=== PATIENT | female | born 1980 | race Caucasian/White ===

== ENCOUNTER 2017-08-08 06:19 | Day surgery (SDC) | payer MEDICAID, SELFPAY ==
[2017-08-08] VITALS (8 sets, daily range): BP systolic 103–124; BP diastolic 71–82; PULSE 80–92; RESP 16; TEMP 36.2–37; O2SAT 91–97; BMI 36.8
[2017-08-08 06:38] LABS: Hematocrit 41.3 % (37-47); Hemoglobin 13.8 g/dl (12.0-15.0); Mean Corp Hgb Conc 33.4 g/gl (32-36); Mean Corpuscular Hgb 29.2 pg (27.0-32.0); Mean Corpuscular Volume 87.3 fL (81-99); Mean Platelet Vol. 9.6 fl (6.2-12.0); Platelet Count 283 K/mm3 (150-450); RBC Distribution Width CV 13.7 % (11.6-14.6); RBC Distribution Width SD 42.4 fl (35.1-43.9); Red Blood Count 4.73 M/mm3 (4.2-5.4); White Blood Count 7.5 K/mm3 (4.4-11.0)
[2017-08-08 06:41] LABS: Internal QC Validated? YES +Cl - CLEAR BKGD; Pregnancy, Urine Negative Negative
[2017-08-08 06:46] LABS: Scan Indicated on CBC? Y/N NO
--- NOTE | 2017-08-08 07:38 | PCM.HP.STD ---
Problem List (1) Sterilization Status: Acute History of Present Illness Date of Admission: 08/08/17 The patient is a 37 year old F presents for sterilization. 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 Smoking Status: Current every day smoker Alcohol: None Drugs: None Review of Systems Constitutional: Denies: Chills, Fever, Weight Change HEENT: Denies: Head Aches, Sinus Congestion, Sinus Drainage Cardiovascular: Denies: Chest Pain, Palpitations Respiratory: Denies: Cough, Shortness of breath at rest, Sputum production Gastrointestinal: Denies: Abdominal Pain, Nausea, Vomiting Genitourinary: Denies: Dysuria Musculoskeletal: Denies: Joint Pain, Joint Tenderness Skin: Denies: Rash, Wounds Neurological: Denies: Numbness, Tingling, Focal weakness Psychiatric: Denies: Anxiety, Depression, Homicidal Ideations, Suicidal Ideations Hematologic/ Lymphatic: Denies: Easy Bruising, Easy Bleeding VTE Information - Inpt Only VTE Present on Admission: No VTE Mechan Device Prophylaxis: SCD's VTE Pharm Prophylaxis ordered?: No Patient Problems: Active and Suspected Problems Sterilization (Acute) - Physical Exam General: Alert, Oriented x3, Cooperative HEENT: Atraumatic, PERRLA, EOMI, Normocephalic Neck: Supple, No JVD, Negative Carotid Bruits Lungs: Clear to auscultation, Normal air movement Cardiovascular: Regular rate, No murmurs Abdomen: Bowel Sounds Present, Soft, Non Tender Extremities: No edema, Capillary Refill Less than 3 Seconds Skin: No rashes, No breakdown Musculoskeletal: No Tenderness to Palpation of Joints or Extremities Neurological: Cranial nerves II-XII grossly intact Psych/Mental Status: Normal Affect, Appropriate Vital Signs Temp Pulse Resp BP Pulse Ox 98.6 F 80 16 103/73 95 08/08/17 06:32 08/08/17 06:32 08/08/17 06:32 08/08/17 06:32 08/08/17 06:32 Oxygen Delivery Method Room Air Weight: 195 lb 5.273 oz Body Mass Index (BMI) 36.8 Laboratory Tests Past 24 Hrs 08/08/17 08/08/17 08/08/17 06:30 06:30 06:30 WBC 7.5 RBC 4.73 Hgb 13.8 Hct 41.3 MCV 87.3 MCH 29.2 MCHC 33.4 RDW 13.7 RDW Differential 42.4 Plt Count 283 MPV 9.6 Urine Test Negative Blood Type O POSITIVE Antibody Screen NEGATIVE Assessment/Plan Active and Suspected Problems Sterilization (Acute) plan laparoscopic bilateral salpingectomy
--- NOTE | 2017-08-08 08:00 | FALS_PTH ---
PATIENT: JIM SALAS [place] [facility] [place][id number] AGE/SX: 37/F ROOM: RE08/08/[address]: Dr. Mindi Cervantes MD : 1980 BED: DIS: 08/08/2017 SPEC #: [id number] RECD: 08/08/17 11:09 STATUS: WONG [place]LLAND #: [id number] ELIS: 08/08/17 08:[address]: Mindi Cervantes DEPT: SURGICAL PATHOLOGY RECD BY: Alex Miguel ENTERED: 08/08/17 12:11 SP TYPE: FALL TUBES OTHR DR: Dr. Ruth Ramirez MD Tissues: Fallopian tube Procedures: Surgery Specimen Level II HEADER OPERATION: Laparoscopic salpingectomy PRE-OP DIAGNOSIS: Sterilization request TISSUE SUBMITTED: Bilateral fallopian tubes MICROSCOPIC DIAGNOSIS Right and left fallopian tubes, bilateral salpingectomies: Complete segments of fallopian tubes with no pathologic change. AM:anita 08/09/17 MICROSCOPIC DESCRIPTION Slides are reviewed. GROSS DESCRIPTION Received in fixative is one container labeled with the patient's name and designated bilateral fallopian tubes. The specimen consists of bilateral fallopian tubes including fimbrial ends. The fallopian tubes are not identified as right or left. One of the fallopian tubes measure 10 cm in length and 0.5 cm in diameter. The second fallopian tube measures 10 cm in length and 0.5 cm in diameter. Sections reveal unremarkable cut surfaces. Bridge Gang Worker sections are submitted in two cassettes with each cassette containing one fallopian tube. / ROGER:anita 08/08/17 TC:5 CPT: 84821 x2
[2017-08-08] MEDS: Bupivacaine 0.25% 30 ML Vial (08:50)
--- NOTE | 2017-08-08 09:00 | PCM.DC.TUB ---
Discharge Diet: No Restrictions - Increase fluid intake for the next 48 hours. Discharge Activity: Return to Normal Activity, May Drive - when you are no longer taking narcotic pain medications., May Shower, May Take a Tub Bath - in 7 days Additional Activity Instructions:: Ambulate often the next week after surgery. Nothing in the vagina for 5 days. Call your doctor if your incision/area has: Continuous Slow Oozing, Sudden Increased Bleeding, Increased Pain/ Swelling, Increased Redness, Foul Smelling Discharge Call your doctor if you observe: Fever of 101 or Higher Allergies/Adverse Reactions: Allergies metoclopramide HCl [From Reglan] Adverse Reaction (Verified 08/01/17 12:57) Other restlessness Medications to take at Discharge Fluoxetine HCl [Prozac] 20 mg PO DAILY 08/01/17 Naproxen [Naprosyn] 250 - 500 mg PO Q8H PRN PRN #30 tab 08/08/17 Oxycodone HCl/Acetaminophen [Percocet 5-325] 1 - 2 tablet PO Q4H PRN PRN 5 Days #15 tablet 08/08/17 The following prescriptions were given: Oxycodone HCl/Acetaminophen [Percocet 5-325] 1 - 2 tablet PO Q4H PRN PRN 5 Days #15 tablet PRN Reason: Pain Naproxen [Naprosyn] 250 - 500 mg PO Q8H PRN PRN #30 tab PRN Reason: MILD PAIN Primary Care Physician: Ruth Ramirez [Primary Care Provider] - Please Follow Up With: Mindi Cervantes MD - [phone]
--- NOTE | 2017-08-09 08:09 | PCM.OPRPT ---
Problem List (1) Sterilization Status: Acute Report of Operation Date of Procedure: 08/08/17 Pre-Operative Diagnosis: sterilization Post-Operative Diagnosis: same Surgery/Procedure Performed:: laparoscopic bilateral salpignectomy Description of Surgical Findings:: normal tubes ovaries uterus Type of Anesthesia:: General Specimen's removed: tubes Estimated Blood Loss (mL): minimal Fluids Replaced: crystalloid Description of Procedure: Patient was taken in the operating room and was placed under general anesthesia was prepped and draped in normal sterile fashion in the dorsal lithotomy position. Bladder was drained of clear urine and SCDs were on preoperatively. Uterus was sounded and a uterine manipulator was placed after dilating. Attention was then paid to the abdominal portion of the procedure and the umbilicus was elevated with towel clamps and injected with Marcaine and after a 5 mm incision was made and the Veress needle was entered into the abdomen confirmed to be intra-abdominal with a low opening pressure of less than 5 mmHg. Abdomen was insufflated with CO2 gas and a 5 mm optical trocar was placed under direct visualization. A left lower quadrant 5 mm port and a 3 mm alligator retractor was suprapubically placed under direct visualization. Uterus was well visualized and bilateral fallopian tubes identified and bilateral tubes were elevated and transecting across the mesosalpinx and the attachment to the uterine corneal S bilaterally the tubes were removed without complication. Excellent hemostasis was noted. Fallopian tubes were removed through the lower port sites without complication. Liver and upper abdomen were visualized notably within normal limits and no other gross after maladies were seen in the abdomen. All instruments removed from the abdomen after gas was desufflated. Port sites were closed with 3-0 Monocryl Steri's and op sites were applied. All instruments removed from the vagina and patient was awoken and taken recovery in stable condition. Grafts/Implants Used: none - Complications none
== END 2017-08-08 10:28 | disposition home or self-care (01) ==
LOC: SDC 06:20 → AC 06:21
PROVIDERS: Anesthesiology; Family Provider Family Medicine; PCP Family Medicine; Visit Provider Obstetrics & Gynecology
PROC: (CPT 58661; principal; 2017-08-08 07:45)
DX: Z30.2 Encounter for sterilization (principal); F41.9 Anxiety disorder, unspecified; F32.9 Major depressive disorder, single episode, unspecified; F17.200 Nicotine dependence, unspecified, uncomplicated
CPT/HCPCS: 58661; 81025; 85027; 86850; 86900; 88302; J7120; J2405

== ENCOUNTER 2017-09-23 10:52 | Day surgery (SDC) | payer MEDICAID, SELFPAY ==
[2017-09-23] VITALS (8 sets, daily range): BP systolic 99–134; BP diastolic 68–86; PULSE 78–102; RESP 14–16; TEMP 36.4–37.1; O2SAT 92–97; BMI 37.7
[2017-09-23] MEDS: Cefazolin 2 GM in 0.9% Normal Saline 100 ML IV (11:55)
--- NOTE | 2017-09-23 12:05 | DCINST_ITS ---
Discharge Diet: Light diet - advance as tolerated Discharge Activity: Return to Normal Activity, May Drive - when you are no longer taking narcotic pain medications., May Shower - with the bandage in place 1-2 days after surgery. Lifting Restrictions: 20 pounds for 8 weeks. Additional Activity Instructions:: Climbing stairs is fine, walking is encouraged. Sitting in bed may be uncomfortable. Sitting up using your lateral muscles (sitting up sideways) is usually more comfortable. Do not drive, work heavy equipment of sign legal documents for 24 hours. If your hernia repair was an ingunial repair, you may have scrotal swelling, an ice pack and/or athletic support can provide more comfort. Pain medications may cause nausea, you should typically eat light foods as you take your pain medications. Pain medications may also cause constipation. If you have difficulty with this, discuss with your doctor. Call your doctor if your incision/area has: Continuous Slow Oozing, Sudden Increased Bleeding, Increased Pain/ Swelling, Increased Redness, Foul Smelling Discharge Call your doctor if you observe: Fever of 101 or Higher Suture Line Care: Avoid Pulling/Pushing, Avoid Pinching/Bending Additional Dressing/Incision Instructions:: Leave the operative bandage on for 2 -3 days. When you remove the bandage, leave the steri-strips on place until your follow up appointment or they fall off. Allergies/Adverse Reactions: Allergies metoclopramide HCl [From Reglan] Adverse Reaction (Verified 09/20/17 10:17) Other restlessness Medications to take at Discharge Fluoxetine HCl [Prozac] 40 mg PO DAILY 08/01/17 Naproxen [Naprosyn] 250 - 500 mg PO Q8H PRN PRN #30 tab 08/08/17 Oxycodone HCl/Acetaminophen [Percocet 5/325] 1 - 2 tab PO Q4H PRN PRN 4 Days # 30 tab 09/23/17 The following prescriptions were given: Oxycodone HCl/Acetaminophen [Percocet 5/325] 1 - 2 tab PO Q4H PRN PRN 4 Days # 30 tab PRN Reason: Pain Primary Care Physician: Ruth Ramirez [Primary Care Provider] - Please Follow Up With: Darrel Erwin MD - [phone] When: Plan to have a follow up appointment in 7 days. Call to schedule.
--- NOTE | 2017-09-23 12:05 | PCM.OPRPT ---
Problem List (1) Ventral hernia without obstruction or gangrene Status: Acute Report of Operation Date of Procedure: 09/23/17 Pre-Operative Diagnosis: k43.9 ventral hernia without gangrene or obstruction Post-Operative Diagnosis: Same Surgery/Procedure Performed:: Laparoscopic ventral hernia repair with mesh Description of Surgical Findings:: Ventra light ST mesh 4.5 cm x 11.4 cm Type of Anesthesia:: General Anesthesiologist: Hilario Daniels Description of Procedure: Patient was brought to the operating room placed in the supine position. Under excellent general endotracheal intubation the abdomen was sterilely prepped and draped in the usual fashion. Local was injected in the midclavicular lower left abdominal area. Incision was made varies needle was placed inside the abdomen and the abdomen was insufflated to 15 torr. A #5 trocar was placed using a Visiport fashion without injury to underlying structures. A 10/12 trocar was placed suprapubically. Defect was identified above the umbilicus. I took the defect off with the Enseal and came down on the falciform ligament with the Enseal. I had good hemostasis. The defect was relatively small I decided that we would use a 4.5 x 11.4 cm mesh varies needle was placed through the center of the defect the mesh was rolled and placed inside the abdomen we were able to grasp the tubing at work and bring it back through the anterior abdominal wall was cut placed onto the suction syringe and the balloon was dilated the mesh was fashioned in a good place I tacked it in 4 corners with a secure strap. I then removed the balloon in its entirety leaving no parts inside the abdomen. I then circumferentially tacked around the mesh with the secure strap ?2. The mesh laid completely flat and looked quite nice. I had excellent hemostasis. I used a GraNee needle and closed the 1012 lower abdominal trocar with a 0 Vicryl. I remove the trochars under direct visualization good hemostasis was noted. Incisions were then closed with subcuticular stitches of 4-0 Monocryl. Aricept applied. Sterile dressings were applied. Patient tolerated the procedure well. - Admit VTE Documentation VTE Present on Admission: No VTE Mechan Device Prophylaxis: SCD's VTE Pharm Prophylaxis ordered?: No Reason prophylaxis not ordered:: Treatment Not Indicated
[2017-09-23] MEDS: Bupivacaine Mpf 0.5% 30 ML VIAL (12:42)
[2017-09-23] MEDS: oxyCODONE 5 MG Tablet PO (14:42)
[2017-09-23] MEDS: Ketorolac 30 MG/ML Syringe IV (16:36)
== END 2017-09-23 18:01 | disposition home or self-care (01) ==
LOC: SDC 10:53 → AC 10:54
PROVIDERS: Family Provider Family Medicine; PCP Family Medicine; Visit Provider Surgery
PROC: 0WQF4ZZ Repair Abdominal Wall, Percutaneous Endoscopic Approach (ICD-10-PCS; CPT 49652; principal; 2017-09-23 12:40)
DX: K43.9 Ventral hernia without obstruction or gangrene (principal); K21.9 Gastro-esophageal reflux disease without esophagitis; F17.200 Nicotine dependence, unspecified, uncomplicated; L89.301 Pressure ulcer of unspecified buttock, stage 1; F32.9 Major depressive disorder, single episode, unspecified; F41.9 Anxiety disorder, unspecified
CPT/HCPCS: 49652; J7120; C1760; J2405

== ENCOUNTER → 2018-01-10 16:52 | Outpatient (CLI) | payer MEDICAID, SELFPAY ==
[2018-01-10 17:42] LABS: Free T3 2.8 pg/mL (2.18-3.98); T4 Free Direct 0.87 ng/dL (0.76-1.46); Thyroid Stim Hormone (TSH) 1.76 uIU/mL (0.358-3.74)
[2018-01-16 17:05] LABS: Testosterone Free 1.9 pg/mL (0.0-4.2)
== END ==
PROVIDERS: Family Provider Family Medicine; PCP Family Medicine; Visit Provider Obstetrics & Gynecology
DX: R63.5 Abnormal weight gain (principal); N92.6 Irregular menstruation, unspecified
CPT/HCPCS: 36415; 82627; 84402; 84439; 84443; 84481; 82626

== ENCOUNTER 2018-03-17 18:00 | Outpatient (RCR) | payer MEDICAID, SELFPAY | END 2018-03-23 23:59 | LOC: NS 18:00 | PROVIDERS: Family Provider Family Medicine; PCP Family Medicine; Visit Provider Nurse Practitioner Women's Health | DX: E66.9 Obesity, unspecified (principal); Z68.39 Body mass index [BMI] 39.0-39.9, adult; Z71.3 Dietary counseling and surveillance | CPT/HCPCS: 97802; 97803 ==

== ENCOUNTER 2018-04-21 18:00 | Outpatient (RCR) | payer MEDICAID, SELFPAY | END 2018-04-23 23:59 | LOC: NS 18:00 | PROVIDERS: Family Provider Family Medicine; PCP Family Medicine; Visit Provider Nurse Practitioner Women's Health | DX: E66.9 Obesity, unspecified (principal); Z68.39 Body mass index [BMI] 39.0-39.9, adult; Z71.3 Dietary counseling and surveillance | CPT/HCPCS: 97803 ==

== ENCOUNTER 2018-05-26 16:35 | Outpatient (RCR) | payer MEDICAID, SELFPAY | END 2018-06-23 23:59 | LOC: NS 16:35 | PROVIDERS: Family Provider Family Medicine; PCP Family Medicine; Visit Provider Nurse Practitioner Women's Health | DX: E66.9 Obesity, unspecified (principal); Z68.39 Body mass index [BMI] 39.0-39.9, adult; Z71.3 Dietary counseling and surveillance ==

== ENCOUNTER → 2018-06-03 11:20 | Outpatient (CLI) | payer MEDICAID, SELFPAY ==
[2018-06-03 11:07] VITALS: BMI 37.0
[2018-06-03 17:04] LABS: Chlamydia Trachomatis by PCR Negative (Negative); Neisserai gonorrhoeae by PCR Negative (Negative); Probe Check PASS; Sample Adequacy Control PASS; Specimen Processing Control PASS
[2018-06-04 10:01] LABS: HSV 2 IgG < 0.91 index (0.00-0.90)
--- OUTSIDE RECORDS SUMMARY | 2018-07-20 12:24 | XMS RPT_ITS ---
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 Required: No Is patient in pain?: Yes (LRQ) Pain scale (1-10): 1 Allergies metoclopramide HCl [From Reglan] Adverse Reaction (Verified 10/23/17 10:09) Other Medications Fluoxetine HCl [Prozac] 40 mg PO DAILY 08/01/17 [History Confirmed 10/23/17] [facility] Medical History Anxiety and depression (Acute) Surgical History S/P repair of ventral hernia (Acute) Status post tubal ligation (Acute 07/2017) History of tonsillectomy (Acute) History of dilation and curettage (Acute) History of laparoscopy (Acute) Social History Smoking Status: Current every day smoker alcohol intake: current details: social substance use type: does not use caffeine: Yes frequency: 1-2 times per week seatbelt use: always do you feel safe at home: Yes 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 Dr. Erwin performed a laparoscopic ventral hernia repair with mesh on 09/23/2017. Patient tolerated the procedure well. Patient notes pain/discomfort in the right mid abdomen. She notes this discomfort with bowel movements and up an moving around. She denies nausea, vomiting, fever. She notes her appetite has returned to normal. She notes her bowel movements have been fluctuating from constipation to loose stools. She has been taking Miralax to assist with her bowel movements. Patient returns for a follow-up today. She notes the right upper quadrant discomfort has lessen. She has completely stopped her NSAIDs. She notes appetite has returned to normal and bowel habits have been good. Exam Const General: cooperative, healthy appearing, comfortable, no acute distress GI Inspection: normal to inspection, large pannus, obesity, incision (c/d/i. Very nicely healed. ) Palpation: soft Auscultation: normal bowel sounds Assessment AND Plan Problems 1. S/P repair of ventral hernia Z98.890; Z87.19 09/23/2017 Plan - Continue lifting restrictions until 11/23 - May return to work on 11/04/17 - Follow-up as needed Coding Level of Care Code Global Post Op Diagnoses S/P repair of ventral hernia Z98.890; Z87.19 10/23/17 1040 <Electronically signed by Berna Goodrich PA-C> Date Berna Goodrich PA-C Cosigner Signature: Date (if applicable) CC: Annamarie Ramirez SURGERY VISIT REPORT Observed: 10/02/2017 Status: F Source: [place] 10:59 AM [facility] [address] [address] OFFICE VISIT Date of Service: 10/02/17 MR#: [id number] Acct: [id number] Name: JIM SALAS Rep #: [id number] : 1980 Provider: Berna Goodrich PA-C Age/Sex: 37/F Location: [facility] Status: Signed Intake Intake Visit Reasons: F/U UMBILICAL HERNIA SURG DP 09/23/2017 Chief Complaint: f/u ventral hernia repair Attraction Attendant Required: No Is patient in pain?: Yes Pain scale (1-10): 6 Allergies metoclopramide HCl [From Reglan] Adverse Reaction (Verified 10/02/17 09:10) Other Medications Fluoxetine HCl [Prozac] 40 mg PO DAILY 08/01/17 [History Confirmed 10/02/17] ibuprofen 800 mg tablet 800 mg PO TID 7 Days #21 tab 10/02/17 [Rx Confirmed 10/02/17] omeprazole 20 mg capsule,delayed release 20 mg PO QDAY #30 cap 10/02/17 [Rx Confirmed 10/02/17] Is last menstrual period known: No Post menopausal: No Patient : No PFSH Medical History Anxiety and depression (Acute) Surgical History History of dilation and curettage (Acute) History of laparoscopy (Acute) History of tonsillectomy (Acute) S/P repair of ventral hernia (Acute) Status post tubal ligation (Acute 07/2017) Social History Smoking Status: Current every day smoker alcohol intake: current details: social substance use type: does not use caffeine: Yes frequency: 1-2 times per week seatbelt use: always do you feel safe at home: Yes 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 Dr. Erwin performed a laparoscopic ventral hernia repair with mesh on 09/23/2017. Patient tolerated the procedure well. Patient notes pain/discomfort in the right mid abdomen. She notes this discomfort with bowel movements and up an moving around. She denies nausea, vomiting, fever. She notes her appetite has returned to normal. She notes her bowel movements have been fluctuating from constipation to loose stools. She has been taking Miralax to assist with her bowel movements. Exam Const General: cooperative, healthy appearing, comfortable, no acute distress GI Inspection: normal to inspection, obesity, large pannus, incision (c/d/i. No erythema or infection noted. Minimal ecchymosis noted. ) Palpation: soft Auscultation: normal bowel sounds Assessment AND Plan Problems 1. Ventral hernia without obstruction or gangrene K43.9 Plan - Dr. Erwin also evaluated this patient - Recommend no lifting greater than 20 pounds for 6 weeks - Recommend ibuprofen and heating pad for discomfort. Will send prescription. - Continue Miralax every other to every third day. - Recommend 6 weeks off from work - Follow-up in 4 weeks - Recommend PPI while taking NSAIDs. Will send prescription. - Medications New: omeprazole swallow whole; do not crush, chew, dissolve, cut,20 mg PO QDAY break Discontinued: naproxen Discontinued Reason: Pt no longer [id number] - 500 mg PO Q8H PRN PRN MILD PAIN ng Coding Level of Care Code Global Post Op Diagnoses Ventral hernia without obstruction or gangrene K43.9 10/02/17 1059 <Electronically signed by Berna Goodrich PA-C> Date Berna Goodrich PA-C Cosigner Signature: Date (if applicable) CC: OPERATIVE REPORT Observed: 09/27/2017 Status: F Source: [place] 9:40 AM [facility] [place] Medical Records Department [facility] [place] [address] Operative Report 09/23/17 1205 MR#: [id number] Acct: [id number] Name: JIM SALAS Rep #: [id number] : 1980 37 From: Darrel Erwin MD PCP: Annamarie Ramirez Status: DEP [facility] Y Location: [facility] Problem List (1) Ventral hernia without obstruction or gangrene Status: Acute Report of Operation Date of Procedure: 09/23/17 Pre-Operative Diagnosis: k43.9 ventral hernia without gangrene or obstruction Post-Operative Diagnosis: Same Surgery/Procedure Performed:: Laparoscopic ventral hernia repair with mesh Description of Surgical Findings:: Ventra light ST mesh 4.5 cm x 11.4 cm Type of Anesthesia:: General Anesthesiologist: Hilario Daniels Description of Procedure: Patient was brought to the operating room placed in the supine position. Under excellent general endotracheal intubation the abdomen was sterilely prepped and draped in the usual fashion. Local was injected in the midclavicular lower left abdominal area. Incision was made varies needle was placed inside the abdomen and the abdomen was insufflated to 15 torr. A #5 trocar was placed using a Visiport fashion without injury to underlying structures. A 10/12 trocar was placed suprapubically. Defect was identified above the umbilicus. I took the defect off with the Enseal and came down on the falciform ligament with the Enseal. I had good hemostasis. The defect was relatively small I decided that we would use a 4.5 x 11.4 cm mesh varies needle was placed through the center of the defect the mesh was rolled and placed inside the abdomen we were able to grasp the tubing at work and bring it back through the anterior abdominal wall was cut placed onto the suction syringe and the balloon was dilated the mesh was fashioned in a good place I tacked it in 4 corners with a secure strap. I then removed the balloon in its entirety leaving no parts inside the abdomen. I then circumferentially tacked around the mesh with the secure strap 2. The mesh laid completely flat and looked quite nice. I had excellent hemostasis. I used a GraNee needle and closed the 1012 lower abdominal trocar with a 0 Vicryl. I remove the trochars under direct visualization good hemostasis was noted. Incisions were then closed with subcuticular stitches of 4- 0 Monocryl. Aricept applied. Sterile dressings were applied. Patient tolerated the procedure well. - Admit VTE Documentation VTE Present on Admission: No VTE Mechan Device Prophylaxis: SCD's VTE Pharm Prophylaxis ordered?: No Reason prophylaxis not ordered:: Treatment Not Indicated 09/27/17 0940 <Electronically signed by Darrel Erwin MD> Date Darrel Erwin MD CC: Darrel Erwin MD; Annamarie Ramirez Signed DISCHARGE INSTRUCTION Observed: 09/23/2017 Status: F Source: [place] 12:05 PM [facility] [place] Medical Records Department [address] [place] [address] Instructions for Home/Discharge Instructions 09/23/17 1204 MR#: [id number] Acct: [id number] Name: JIM SALAS Rep #: [id number] : 1980 37 From: Darrel Erwin MD PCP: Annamarie Ramirez Status: REG [facility] Discharge Diet: Light diet - advance as tolerated Discharge Activity: Return to Normal Activity, May Drive - when you are no longer taking narcotic pain medications., May Shower - with the bandage in place 1-2 days after surgery. Lifting Restrictions: 20 pounds for 8 weeks. Additional Activity Instructions:: Climbing stairs is fine, walking is encouraged. Sitting in bed may be uncomfortable. Sitting up using your lateral muscles (sitting up sideways) is usually more comfortable. Do not drive, work heavy equipment of sign legal documents for 24 hours. If your hernia repair was an ingunial repair, you may have scrotal swelling, an ice pack and/or athletic support can provide more comfort. Pain medications may cause nausea, you should typically eat light foods as you take your pain medications. Pain medications may also cause constipation. If you have difficulty with this, discuss with your doctor. Call your doctor if your incision/area has: Continuous Slow Oozing, Sudden Increased Bleeding, Increased Pain/ Swelling, Increased Redness, Foul Smelling Discharge Call your doctor if you observe: Fever of 101 or Higher Suture Line Care: Avoid Pulling/Pushing, Avoid Pinching/Bending Additional Dressing/Incision Instructions:: Leave the operative bandage on for 2-3 days. When you remove the bandage, leave the steri-strips on place until your follow up appointment or they fall off. Allergies/Adverse Reactions: Allergies metoclopramide HCl [From Reglan] Adverse Reaction (Verified 09/20/17 10:17) Other restlessness Medications to take at Discharge Fluoxetine HCl [Prozac] 40 mg PO DAILY 08/01/17 Naproxen [Naprosyn] 250 - 500 mg PO Q8H PRN PRN #30 tab 08/08/17 Oxycodone HCl/Acetaminophen [Percocet 5/325] 1 - 2 tab PO Q4H PRN PRN 4 Days #30 tab 09/23/17 The following prescriptions were given: Oxycodone HCl/Acetaminophen [Percocet 5/325] 1 - 2 tab PO Q4H PRN PRN 4 Days #30 tab PRN Reason: Pain Primary Care Physician: Annamarie Ramirez [Primary Care Provider] - Please Follow Up With: Darrel Erwin MD - [phone] When: Plan to have a follow up appointment in 7 days. Call to schedule. 09/23/17 1205 <Electronically signed by Darrel Erwin MD> Date Darrel Erwin MD CC: Annamarie Ramirez SURGERY VISIT REPORT Observed: 09/16/2017 Status: F Source: [place] 1:48 PM [facility] [address] [place] [address] OFFICE VISIT Date of Service: 09/16/17 MR#: [id number] Acct: [id number] Name: JIM SALAS Rep #: [id number] : 1980 Provider: Darrel Erwin MD Age/Sex: 37/F Location: [facility] Status: Signed Intake Intake Visit Reasons: fu/ pilonidal cyst, discuss hernia sx Chief Complaint: Hernia after surgery Attraction Attendant Required: No Is patient in pain?: No Allergies metoclopramide HCl [From Reglan] Adverse Reaction (Verified 09/16/17 13:38) Other Medications Fluoxetine HCl [Prozac] 20 mg PO DAILY 08/01/17 [History Confirmed 09/16/17] Naproxen [Naprosyn] 250 - 500 mg PO Q8H PRN PRN #30 tab 08/08/17 [Rx Confirmed 09/16/17] Oxycodone HCl/Acetaminophen [Percocet 5-325] 1 - 2 tab PO Q4H PRN PRN 5 Days #15 tab 02/15/18 [Rx Confirmed 09/16/17] [facility] Medical History Anxiety and depression (Acute) Surgical History History of dilation and curettage (Acute) History of laparoscopy (Acute) History of tonsillectomy (Acute) Status post tubal ligation (Acute 07/2017) Social History Smoking Status: Current every day smoker alcohol intake: current details: social substance use type: does not use caffeine: Yes frequency: 1-2 times per week seatbelt use: always do you feel safe at home: Yes 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 She has been putting calmoseptine on her buttocks for decubitus sacral ulcer stage I is no longer hurting for her and she does feel much better. Exam Skin Other: Significant improvement in the sacral ulcer today. Virtually no cellulitis is identified the skin is improving. Assessment AND Plan Problems 1. Decubitus ulcer of buttock, stage 1, unspecified laterality L89.301 Plan At this point I would like the patient to continue using the calmoseptine. She is going be getting scheduled for her laparoscopic ventral hernia repair in the upcoming weeks. Coding Level of Care Code Off vis,est,level 2 Diagnoses Decubitus ulcer of buttock, stage 1, unspecified laterality L89.301 Pressure ulcer location: buttock Pressure ulcer stage: stage 1 Laterality: unspecified laterality 09/16/17 1348 <Electronically signed by Darrel Erwin MD> Date Darrel Rubyign Signature: Date (if applicable) CC: SURGERY VISIT REPORT Observed: 09/10/2017 Status: F Source: [place] 11:33 AM [facility] [facility] [address] [facility] [address] [place] [address] OFFICE VISIT Date of Service: 09/06/17 MR#: [id number] Acct: [id number] Name: JIM SALAS Rep #: [id number] : 1980 Provider: Darrel Erwin MD Age/Sex: 37/F Location: [facility] Status: Signed Intake Intake Visit Reasons: poss pilonidal cyst, discuss hernia sx Chief Complaint: Hernia after surgery Attraction Attendant Required: No Is patient in pain?: No Allergies metoclopramide HCl [From Reglan] Adverse Reaction (Verified 09/06/17 08:03) Other Medications Fluoxetine HCl [Prozac] 20 mg PO DAILY 08/01/17 [History Confirmed 09/06/17] Naproxen [Naprosyn] 250 - 500 mg PO Q8H PRN PRN #30 tab 08/08/17 [Rx Confirmed 09/06/17] Oxycodone HCl/Acetaminophen [Percocet 5-325] 1 - 2 tab PO Q4H PRN PRN 5 Days #15 tab 08/08/17 [Rx Confirmed 09/06/17] PFSH Medical History Anxiety and depression (Acute) Surgical History History of dilation and curettage (Acute) History of laparoscopy (Acute) History of tonsillectomy (Acute) Status post tubal ligation (Acute 07/2017) Social History Smoking Status: Current every day smoker alcohol intake: current details: social substance use type: does not use caffeine: Yes frequency: 1-2 times per week seatbelt use: always do you feel safe at home: Yes 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: JIM SALAS, is a 37 F who presents to the office today for Exam Const General: well developed, no acute distress, well hydrated Orientation: oriented to person, oriented to place, oriented to time HENMT Head: normocephalic, atraumatic Ears: external ears normal Mouth: moist mucous membranes Eyes Sclera: sclerae normal Pupils: normal by confrontation Neck Neck: no lymphadenopathy noted Neck mass: No Thyroid: symmetrical, thyroid normal Chest Chest palpation AND inspection: normal inspection of the chest Resp Effort AND Inspection: normal respiratory effort Auscultation: clear to auscultation bilaterally Percussion: percussion normal Cardio Rate: regular rate Rhythm: regular rhythm GI Palpation: soft, tender, no masses, no hepatosplenomegaly Rectal Exam: other Other: A Hernia ventral hernia above her umbilicus on exam. Rectal exam deferred. She has a grade 1 sacral decubitous ulcer. 1.5 x 2cm. small linear tear in the skin. Extrem General: no clubbing, cyanosis or edema, normal to inspection Assessment AND Plan Problems 1. Ventral hernia without obstruction or gangrene K43.9 2. Decubitus ulcer of sacral region, stage 1 L89.151 Plan My plan is to perform a laporoscopic ventral hernia repair. The planned surgical procedure was discussed extensively with the patient. The risks, benefits, anticipated outcomes and possible complication were mentioned. The patient understands that all hernia repair surgery has a chance of recurrence and/or chronic post-operative pain. My staff has also explained the procedure in understandable terms and the patient was given the option to take printed material concerning the planned procedure. The patient had the opportunity to ask questions concerning the planned procedure. The patient freely consents to the planned procedure. We will use Calmoceptine on her sacral decube agrain. Coding Level of Care Code Off vis,est,level 3 Diagnoses Ventral hernia without obstruction or gangrene K43.9 Decubitus ulcer of sacral region, stage 1 L89.151 Pressure ulcer location: sacral region Pressure ulcer stage: stage 1 09/10/17 1133 <Electronically signed by Darrel Erwin MD> Date Darrel Daevy Signature: Date (if applicable) CC: Annamarie SIDDIQIU RAPID STREP A Collected: 09/07/2017 Status: F Source: [facility] SCRN 4:52 AM [facility] TYPE CODE TESTS RESULT OUT OF RANGE REFERENCE UNITS LAB FSSTREP Negative Abnormal FS Positive Rapid Strep A Scrn Result Comment: Rapid test procedural control acceptable. Testing performed at [facility], [address] [place] [address], [place], [place]; [employer] Myron Ross M.D. Performed By: #### FSSTREP #### Unless otherwise noted, all testing performed by [facility] [address] [place], [place] [address] CLIA: [id number] Contact Lens Manufacturer: Antelmo Hussein M.D. SURGERY VISIT REPORT Observed: 08/16/2017 Status: F Source: [place] 8:37 AM [facility] [address] [facility] [address] [place] [address] OFFICE VISIT Date of Service: 08/16/17 MR#: [id number] Acct: [id number] Name: JIM SALAS Rep #: [id number] : 1980 Provider: Darrel Erwin MD Age/Sex: 37/F Location: [facility] Status: Signed Intake Vital Signs08/16/17 Height 5 ft 1 in 08/16/17 Weight: 198 lb Intake Visit Reasons: Hernia Chief Complaint: Hernia after surgery Attraction Attendant Required: No Is patient in pain?: Yes Allergies metoclopramide HCl [From Reglan] Adverse Reaction (Verified 08/16/17 08:09) Other Medications Fluoxetine HCl [Prozac] 20 mg PO DAILY 08/01/17 [History Confirmed 08/16/17] Naproxen [Naprosyn] 250 - 500 mg PO Q8H PRN PRN #30 tab 08/08/17 [Rx Confirmed 08/16/17] Oxycodone HCl/Acetaminophen [Percocet 5-325] 1 - 2 tab PO Q4H PRN PRN 5 Days #15 tab 08/08/17 [Rx Confirmed 08/16/17] PFSH Medical History Anxiety and depression (Acute) Surgical History History of dilation and curettage (Acute) History of laparoscopy (Acute) History of tonsillectomy (Acute) Status post tubal ligation (Acute 07/2017) Social History Smoking Status: Current every day smoker alcohol intake: current details: social substance use type: does not use caffeine: Yes frequency: 1-2 times per week seatbelt use: always do you feel safe at home: Yes 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 A tubal ligation on 08/08/2017 has been developing increasing abdominal discomfort just above her umbilicus since then. She has not been having any changes in her bowel or bladder habits. I have actually seen this patient approximately 5 years ago where she was having a hernia which was much smaller in size and at that time we opted not to operate on it. She has since had another child since I last saw her for that. ROS General General: No weight change, appetite, fatigue, colon cancer, breast cancer or weakness HEENT HEENT: No difficulty swallowing, eye injury, eye surgery, swollen glands or hoarseness Endo Endocrine: No thyroid disease, diabetes mellitus, thyroid cancer, Hair loss, heat intolerance or cold intolerance Skin Skin: No rash or changing moles Breast Breast: No left breast lump, right breast lump, nipple discharge, breast pain, abnormal mammogram, abnormal US or breast enlargement Musc Musculoskeletal: No back problems, arthritis, rheumatoid arthritis, gout or joint pain Cardio Cardiovascular: No murmur, pacemaker, heart disease, atrial fibrillation, high blood pressure, heart attack, heart stent, palpitations, shortness of breat with exertion or chest pain Psych Psychiatric: Yes depression and anxiety; no hearing voices Resp Respiratory: No shortness of breath, No sleep apnea, No cough, No COPD, No asthma, No emphysema, No wheezing Gastro Gastrointestinal: Yes abdominal pain, No nausea or vomiting, No diarrhea, No constipation, No blood in stool, No acid reflux, No hemorrhoids, No ulcers, No gallbladder problem, No black,tarry stools Chapo Hematologic: No blood thinners, No blood disorders, No bleeding, No anemia, No blood clots Neuro Neurologic: No system reviewed and no additional complaints, except as docu, No as per HPI, No abnormal walking, No abnormal hearing, No abnormal movements, No abnormal speech, No behavioral changes, No burning sensations, No confusion, No seizure-like activity, No unsteadiness, No dizziness, No localized weakness, No frequent falls, No headache(s), No lack of coordination, No loss of vision, No memory loss, No numbness, No other visual disturbances, No radiating pain, No restless legs, No sensory deficit, No fainting, No tingling, No tremor(s), No weakness, No other Exam Const General: well developed, no acute distress, well hydrated Orientation: oriented to person, oriented to place, oriented to time [facility] Head: normocephalic, atraumatic Ears: external ears normal Mouth: moist mucous membranes Eyes Sclera: sclerae normal Pupils: normal by confrontation Neck Neck: no lymphadenopathy noted Neck mass: No Thyroid: symmetrical, thyroid normal Chest Chest palpation AND inspection: normal inspection of the chest Breast Palpation: No nipple discharge Resp Effort AND Inspection: normal respiratory effort Auscultation: clear to auscultation bilaterally Percussion: percussion normal Cardio Rate: regular rate Rhythm: regular rhythm Heart Sounds: no murmurs GI Palpation: soft, tender, no masses, no hepatosplenomegaly Rectal Exam: other Other: A Hernia large 3 cm hernia is felt just above the umbilicus. She has a very thin fascial edge here. On exam. Rectal exam deferred. Extrem General: no clubbing, cyanosis or edema, normal to inspection Assessment AND Plan Problems 1. Ventral hernia without obstruction or gangrene K43.9 Plan My plan is to perform a ventral hernia repair with mesh. The planned surgical procedure was discussed extensively with the patient. The risks, benefits, anticipated outcomes and possible complication were mentioned. The patient understands that all hernia repair surgery has a chance of recurrence and/or chronic post-operative pain. My staff has also explained the procedure in understandable terms and the patient was given the option to take printed material concerning the planned procedure. The patient had the opportunity to ask questions concerning the planned procedure. The patient freely consents to the planned procedure. Coding Level of Care Code Off vis,new,level 3 Diagnoses Ventral hernia without obstruction or gangrene K43.9 08/16/17 0837 <Electronically signed by Darrel Erwin MD> Date Darrel Davey Signature: Date (if applicable) CC: Annamarie Ramirez; Mindi Cervantes MD [facility] OFFICE VISIT Observed: 08/13/2017 Status: F Source: RA[place]DO REPORT 3:15 PM [facility] [place] [address] [place] [address]. [address] [place] [address] OFFICE VISIT Date of Service: 08/13/17 MR#: [id number] Acct: [id number] Name: JIM SALAS Rep #: [id number] : 1980 Provider: STORM Marion Age/Sex: 37/F Location: [facility] Status: Signed Intake Vital Signs08/13/17 Height 5 ft 1 in 08/13/17 Weight: 197 lb 08/13/17 Body Mass Index (BMI) 37.2 08/13/17 Blood Pressure 100/68 Intake Visit Reasons: HERNIA? Chief Complaint: Hernia after surgery Attraction Attendant Required: No Is patient in pain?: Yes Allergies metoclopramide HCl [From Reglan] Adverse Reaction (Verified 08/13/17 15:00) Other Medications Fluoxetine HCl [Prozac] 20 mg PO DAILY 08/01/17 [History Confirmed 08/13/17] Naproxen [Naprosyn] 250 - 500 mg PO Q8H PRN PRN #30 tab 08/08/17 [Rx Confirmed 08/13/17] Oxycodone HCl/Acetaminophen [Percocet 5-325] 1 - 2 tab PO Q4H PRN PRN 5 Days #15 tab 08/08/17 [Rx Confirmed 08/13/17] Is last menstrual period known: No Post menopausal: No Patient : No : No PFSH Medical History Anxiety and depression (Acute) Surgical History History of dilation and curettage (Acute) History of laparoscopy (Acute) History of tonsillectomy (Acute) Social History Smoking Status: Current every day smoker alcohol intake: current details: social substance use type: does not use caffeine: Yes frequency: 1-2 times per week seatbelt use: always do you feel safe at home: Yes 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 Noted yesterday. Was aware previously of unbilical hernia. Had tubal ligation 08/08. Has had BM, passing flatulence. Pregancy History 7 Elective abortions Hx Para 5 Spontaneous abortions Past Pregnancies Del. 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 FOB t n h a n Exam GI Other: Soft, mildly tender, reduceable 3cm mass above umbilicus. Probable persistent hernia. Reevaluated per Dr. Cervantes. Assessment AND Plan Problems 1. Umbilical hernia without obstruction and without gangrene K42.9 Plan Avoid heavy lifting. Call with worsening pain, unable to have BM. Arrange for surgical consult Dr. Erwin. Note off work until 08/19 as she worked 12 hour shift yesterday. Coding Level of Care Code Off vis,est,level 3 Diagnoses Umbilical hernia without obstruction and without gangrene K42.9 Obstruction and gangrene presence: without obstruction or gangrene 08/13/17 3085 <Electronically signed by Kaila ZAMORANO> Date Kaila ZAMORANO Cosigner Signature: Date (if applicable) CC: OPERATIVE REPORT Observed: 08/09/2017 Status: F Source: AROLDO 1:22 PM [facility] [facility] Medical Records Department [address] [place] [address] Operative Report 08/09/17 0809 MR#: [id number] Acct: [id number] Name: JIM SALAS Rep #: [id number] : 1980 37 From: Mindi Cervantes MD PCP: Annamarie Ramirez Status: DEP [facility] Y Location: [facility] Problem List (1) Sterilization Status: Acute Report of Operation Date of Procedure: 08/08/17 Pre-Operative Diagnosis: sterilization Post-Operative Diagnosis: same Surgery/Procedure Performed:: laparoscopic bilateral salpignectomy Description of Surgical Findings:: normal tubes ovaries uterus Type of Anesthesia:: General Specimen's removed: tubes Estimated Blood Loss (mL): minimal Fluids Replaced: crystalloid Description of Procedure: Patient was taken in the operating room and was placed under general anesthesia was prepped and draped in normal sterile fashion in the dorsal lithotomy position. Bladder was drained of clear urine and SCDs were on preoperatively. Uterus was sounded and a uterine manipulator was placed after dilating. Attention was then paid to the abdominal portion of the procedure and the umbilicus was elevated with towel clamps and injected with Marcaine and after a 5 mm incision was made and the Veress needle was entered into the abdomen confirmed to be intra-abdominal with a low opening pressure of less than 5 mmHg. Abdomen was insufflated with CO2 gas and a 5 mm optical trocar was placed under direct visualization. A left lower quadrant 5 mm port and a 3 mm alligator retractor was suprapubically placed under direct visualization. Uterus was well visualized and bilateral fallopian tubes identified and bilateral tubes were elevated and transecting across the mesosalpinx and the attachment to the uterine corneal S bilaterally the tubes were removed without complication. Excellent hemostasis was noted. Fallopian tubes were removed through the lower port sites without complication. Liver and upper abdomen were visualized notably within normal limits and no other gross after maladies were seen in the abdomen. All instruments removed from the abdomen after gas was desufflated. Port sites were closed with 3-0 Monocryl Steri's and op sites were applied. All instruments removed from the vagina and patient was awoken and taken recovery in stable condition. Grafts/Implants Used: none - Complications none 08/09/17 1322 <Electronically signed by Mindi Cervantes MD> Date Mindi Cervantes MD CC: Annamarie Ramirez; Mindi Cervantes MD Signed DISCHARGE INSTRUCTION Observed: 08/08/2017 Status: F Source: AROLDO 9:00 AM [facility] Medical Records Department [address] [place] [address] Instructions for Home/Discharge Instructions 08/08/17 0900 MR#: [id number] Acct: [id number] Name: JIM SALAS Rep #: [id number] : 1980 37 From: Mindi Cervantes MD PCP: Annamarie Ramirez Status: REG [facility] Discharge Diet: No Restrictions - Increase fluid intake for the next 48 hours. Discharge Activity: Return to Normal Activity, May Drive - when you are no longer taking narcotic pain medications., May Shower, May Take a Tub Bath - in 7 days Additional Activity Instructions:: Ambulate often the next week after surgery. Nothing in the vagina for 5 days. Call your doctor if your incision/area has: Continuous Slow Oozing, Sudden Increased Bleeding, Increased Pain/ Swelling, Increased Redness, Foul Smelling Discharge Call your doctor if you observe: Fever of 101 or Higher Allergies/Adverse Reactions: Allergies metoclopramide HCl [From Reglan] Adverse Reaction (Verified 08/01/17 12:57) Other restlessness Medications to take at Discharge Fluoxetine HCl [Prozac] 20 mg PO DAILY 08/01/17 Naproxen [Naprosyn] 250 - 500 mg PO Q8H PRN PRN #30 tab 08/08/17 Oxycodone HCl/Acetaminophen [Percocet 5-325] 1 - 2 tablet PO Q4H PRN PRN 5 Days #15 tablet 08/08/17 The following prescriptions were given: Oxycodone HCl/Acetaminophen [Percocet 5-325] 1 - 2 tablet PO Q4H PRN PRN 5 Days #15 tablet PRN Reason: Pain Naproxen [Naprosyn] 250 - 500 mg PO Q8H PRN PRN #30 tab PRN Reason: MILD PAIN Primary Care Physician: Annamarie Ramirez [Primary Care Provider] - Please Follow Up With: Mindi Cervantes MD - [phone] 08/08/17 0900 <Electronically signed by Mindi Cervantes MD> Date Mindi Cervantes MD CC: Annamarie Ramirez FALLOPIAN TUBES/STERILIZATION Observed: 08/08/2017 Status: F Source: AROLDO 8:00 AM [facility] [place] Patient: JIM SALAS : 1980 (37/F) Acct Num: [id number] Phys: Billy EDWARD,Mindi Unit Num: [id number] Loc: [facility] Specimen: [id number] Received: 08/08/171108 Spec Type: FALL TUBES TISSUES TISSUES: Fallopian tube GROSS DESCRIPTION Received in fixative is one container labeled with the patient's name and designated bilateral fallopian tubes. The specimen consists of bilateral fallopian tubes including fimbrial ends. The fallopian tubes are not identified as right or left. One of the fallopian tubes measure 10 cm in length and 0.5 cm in diameter. The second fallopian tube measures 10 cm in length and 0.5 cm in diameter. Sections reveal unremarkable cut surfaces. Clinical Trial Coordinator sections are submitted in two cassettes with each cassette containing one fallopian tube. / SJ:anita 08/08/17 TC:5 CPT: 80379 x2 HEADER OPERATION: Laparoscopic salpingectomy PRE-OP DIAGNOSIS: Sterilization request TISSUE SUBMITTED: Bilateral fallopian tubes MICROSCOPIC DESCRIPTION Slides are reviewed. MICROSCOPIC DIAGNOSIS Right and left fallopian tubes, bilateral salpingectomies: Complete segments of fallopian tubes with no pathologic change. AM:anita 08/09/17 Signed Arvind [facility] 08/09/17 <signature on file> Performed By: #### PFALS #### [facility] [address] [place], [address] HISTORY AND PHYSICAL Observed: 08/08/2017 Status: F Source: GLENNS FERRY EXAM 7:59 AM [facility] [facility] Medical Records Department [address] [place] [address] History and Physical 08/08/17 0738 MR#: [id number] Acct: [id number] Name: JIM SALAS Rep #: [id number] : 1980 37 From: Mindi Cervantes MD PCP: Annamarie Ramirez Status: REG [facility] Y Location: [place] [address] Problem List (1) Sterilization Status: Acute History of Present Illness Date of Admission: 08/08/17 The patient is a 37 year old F presents for sterilization. 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 Smoking Status: Current every day smoker Alcohol: None Drugs: None Review of Systems Constitutional: Denies: Chills, Fever, Weight Change HEENT: Denies: Head Aches, Sinus Congestion, Sinus Drainage Cardiovascular: Denies: Chest Pain, Palpitations Respiratory: Denies: Cough, Shortness of breath at rest, Sputum production Gastrointestinal: Denies: Abdominal Pain, Nausea, Vomiting Genitourinary: Denies: Dysuria Musculoskeletal: Denies: Joint Pain, Joint Tenderness Skin: Denies: Rash, Wounds Neurological: Denies: Numbness, Tingling, Focal weakness Psychiatric: Denies: Anxiety, Depression, Homicidal Ideations, Suicidal Ideations Hematologic/ Lymphatic: Denies: Easy Bruising, Easy Bleeding VTE Information - Inpt Only VTE Present on Admission: No VTE Mechan Device Prophylaxis: SCD's VTE Pharm Prophylaxis ordered?: No Patient Problems: Active and Suspected Problems Sterilization (Acute) - Physical Exam General: Alert, Oriented x3, Cooperative HEENT: Atraumatic, PERRLA, EOMI, Normocephalic Neck: Supple, No JVD, Negative Carotid Bruits Lungs: Clear to auscultation, Normal air movement Cardiovascular: Regular rate, No murmurs Abdomen: Bowel Sounds Present, Soft, Non Tender Extremities: No edema, Capillary Refill Less than 3 Seconds Skin: No rashes, No breakdown Musculoskeletal: No Tenderness to Palpation of Joints or Extremities Neurological: Cranial nerves II-XII grossly intact Psych/Mental Status: Normal Affect, Appropriate Vital Signs Temp Pulse Resp BP Pulse Ox 98.6 F 80 16 103/73 95 08/08/17 06:32 08/08/17 06:32 08/08/17 06:32 08/08/17 06:32 08/08/17 06:32 Oxygen Delivery Method Room Air Weight: 195 lb 5.273 oz Body Mass Index (BMI) 36.8 Laboratory Tests Past 24 Hrs WBC 7.5 RBC 4.73 Hgb 13.8 Hct 41.3 MCV 87.3 Assessment/Plan Active and Suspected Problems Sterilization (Acute) plan laparoscopic bilateral salpingectomy 08/08/17 0759 <Electronically signed by Mindi Cervantes MD> Date Mindi Cervantes MD Cosign Signature: Date (if applicable) CC: Annamarie Ramirez; Mindi Cervantes MD Signed ,URINE Collected: 08/08/2017 Status: F Source: GLENNS FERRY 6:30 AM [facility] [place] TYPE CODE TESTS RESULT OUT OF REFERENCE UNITS RANGE LAB L400.8000 Negative Normal HCGUQUAL Negative Result Comment: Very dilute urine specimens, as indicated by a low specific gravity, may not contain premium service representative levels of hCG. If is still suspected, a first morning urine specimen should be collected 48 hours later and tested. Performed By: #### L400.7600, B101.7450 #### [facility] [address] [place], [address] TYPE AND SCREEN Collected: 08/08/2017 Status: F Source: GLENNS FERRY 6:30 AM [facility] [place] Order Comment: Reason for Type AND Screen/Red Cells: SURGERY TYPE CODE TESTS RESULT OUT OF RANGE REFERENCE UNITS LAB B10.0800 O Normal BLOOD TYPE GEL POSITIVE LAB B100.4000 Normal Antibody NEGATIVE Screen Performed By: #### L400.7600, B101.7450 #### [facility] [address] [place], [address] CBC-COMPLETE BLOOD CNT Collected: 08/08/2017 Status: F Source: AROLDO NO DIFF 6:30 AM [facility] TYPE CODE TESTS RESULT OUT OF RANGE REFERENCE UNITS LAB L100.1000 4.4-11.0 K/mm3 Normal WBC 7.5 LAB L100.1200 4.2-5.4 M/mm3 Normal RBC 4.73 LAB L100.1300 12.0-15.0 g/dl Normal HGB 13.8 LAB L100.1400 37-47 % Normal HCT 41.3 LAB L100.1500 81-99 fL Normal MCV 87.3 LAB L100.1600 27.0-32.0 pg Normal MCH 29.2 LAB L100.1700 32-36 g/gl Normal MCHC 33.4 LAB L100.1810 11.6-14.6 % Normal RDW CV 13.7 LAB L100.1820 35.1-43.9 fl Normal RDW SD 42.4 LAB L100.1900 150-450 K/mm3 Normal PLT 283 LAB L100.2000 6.2-12.0 fl Normal MPV 9.6 Performed By: #### L100.0500 #### [facility] [address] [place], [address] ALLERGIES ALLERGIES DATE TYPE / NAME / CODE REACTION SEVERITY SOURCE CODE 06/03/2018 Drug metoclopramide Other Unknown [place] Allergy/41 HCl/[id number](RXNOR [facility] [id number]([facility]) Repository ENCOUNTERS ENCOUNTERS ADMIT/DISCHARGE ACCOUNT NUMBER ADMITTING ENCOUNTER LOCATION SOURCE CLASS 07/04/2018 [id number] Ambulatory [facility] ding:NS Repository 06/18/2018/06/18/20 [id number] Emergency [address] [place] [address] DRoom: System ([place]) E832Tym: Repository E016 06/04/2018 [id number] Ambulatory BMSBuilding: [place] [facility] Repository 06/03/2018 [id number] Ambulatory [facility] ding:PAVLAB Repository 06/03/2018/06/03/20 [id number] Ambulatory BMSBuilding: [place] 18 BMS.[facility] Hospital Repository 05/26/2018/06/23/20 [id number] Ambulatory [place] 18 [facility] ding:NS Repository 05/21/2018 [id number] Ambulatory [facility]in[facility] [employer] B System ([place]) Repository 05/21/2018 [id number] Ambulatory [facility]in[facility] [employer] [facility] [place] ([place]) Repository 04/21/2018/04/23/20 [id number] Ambulatory [place] 18 [facility] ding:NS Repository 03/17/2018/03/23/20 [id number] Ambulatory [place] [address] [place] [address] ding:NS Repository 01/10/2018 [id number] Ambulatory [facility] ding:LAB Repository 01/10/2018/01/11/20 [id number] Ambulatory BMSBuilding: [place] 18 [facility] Hospital Repository 12/13/2017 [id number] Ambulatory [facility] [employer] 2 System ([place]) Repository 12/13/2017 [id number] Ambulatory Buildin[facility] [employer] P [place] ([place]) Repository 12/08/2017/12/09/19 [id number] [address] [place] [address] DRoom: System ([place]) P601Zmc: Repository E012 10/23/2017/10/24/19 [id number] Ambulatory BMSBuilding: [place] 18 BMS.[facility] Repository 10/02/2017/10/03/19 [id number] Ambulatory BMSBuilding: [place] 18 BMS.[facility] Repository 09/23/2017/09/24/19 [id number] Ambulatory [place] 18 [facility] ding:SDC Repository 09/23/2017 [id number] Ambulatory BMSBuilding: [place] BMS.CF.[facility] Repository 09/17/2017 [id number] Ambulatory Buildin[facility] [employer] A System ([place]) Repository 09/16/2017/09/17/19 [id number] Ambulatory BMSBuilding: [place] 18 BMS.[facility] Repository 09/13/2017 [id number] Ambulatory BMSBuilding: [place] BMS.[facility] Repository 09/07/2017/09/08/[id number] [facility] Emergency [place] [address] [place] lding:O1E [place] and Onel [place] DeptRoom: Hospitals O1E C7DOBqa: Repository O1E O1ED02 09/06/2017/09/07/19 [id number] Ambulatory BMSBuilding: [place] 18 BMS.[facility] Repository 08/16/2017/08/16/19 [id number] Ambulatory BMSBuilding: [place] 18 BMS.[facility] Repository 08/13/2017/08/13/19 [id number] Ambulatory BMSBuilding: [place] 18 BMS.[facility] Repository 08/08/2017/08/08/19 [id number] Ambulatory [place] 18 [facility] ding:SDCRoom Repository : AC01 08/08/2017 [id number] Ambulatory BMSBuilding: [place] BMS.CF.[facility] Repository PAYERS PAYERS ENCOUNTER GUARANTOR PAYER SUBSCRIBER SOURCE 07/04/2018 JIM [id number] Primary JIM GARDINERB: [place]NER Insurance:CARESOURC [id number] [facility] Number: Hospital [id number]: 419 [id number] Repository [phone] () Date:2018-03-04 [address]ATTN: [place] [address]XC: 07/04/2018 Secondary NOT GIVENUNK [place] Insurance:SELF PAY [facility] Number: Effective Repository Date:2018-06-24 06/04/2018 JIM SALAS793 Primary JIM GARDINERB: [place] BETNER [facility] [id number] [facility] Number: Hospital [id number]: 419 [id number] Repository [phone] () Date:2018-06-04 [address]ATTN: [place] [address]LB: 06/04/2018 Secondary NOT GIVENUNK [place] Insurance:SELF PAY [facility] Number: Effective Repository Date:2018-06-04 06/03/2018 JIM SALAS793 Primary JIM GARDINERB: [place] Insurance[place]CARESOURCEP [id number] Number[place] Hospital [id number]: [phone] [id number] Repository [phone] () Date:2018-06-03P [address]ATTN: [place] [address]DL: 06/03/2018 Secondary NOT GIVENUNK [place] Insurance:SELF PAY [facility] Number: Effective Repository Date:2018-06-03 06/03/2018 JIM SALAS793 Primary JIM GARDINERB: [place] BETNER Insurance:CARESOURCEP [id number] [facility] Number: Hospital [id number]: [phone] [id number] Repository [phone] () Date:2018-05-30P [address]ATTN: [place] [address]UA: 06/03/2018 Secondary NOT GIVENUNK [place] Insurance:SELF PAY [facility] Number: Effective Repository Date:2018-06-03 05/26/2018 JIM SALAS793 Primary JIM GARDINERB: [place] Insurance:CARESOURCEP [id number] [facility] Number: Hospital [id number]: ([phone]) [id number] Repository [phone] () Date:2018-03-04 [address]ATTN: [place] [address]AX: 05/26/2018 Secondary NOT GIVENUNK [place] Insurance:SELF PAY [facility] Number: Effective Repository Date:2018-04-24 04/21/2018 JIM SALAS793 Primary JIM GARDINERB: [place] BETNER Insurance:CARESOURCEP [id number] [facility] Number: Hospital [address]Dlg: [phone] [id number] Repository [phone] (HP) Date:2018-03-04P [address]ATTN: [place] [address]HG: 04/21/2018 Secondary NOT GIVENUNK [place] Insurance:SELF PAY [facility] Hospital Number: Effective Repository Date:2018-03-24 03/17/2018 JIM Miranda [id number] Primary JIM SALASDOB: [place] Insurance:CARESOURCEP [id number] [facility] Number: Hospital [address]Ihk: [phone] [id number] Repository [phone] (HP) Date:2018-03-04 [address]ATTN: [place] [address]OF: 03/17/2018 Secondary NOT GIVENUNK [place] Insurance:SELF PAY [facility] Hospital Number: Effective Repository Date:2018-03-04 01/10/2018 JIM Miranda [id number] Primary JIM SALASDOB: [place] BETNER Insurance:CARESOURCEP [id number] [facility] Number: Hospital [address]Tfe: [phone] [id number] Repository [phone] (HP) Date:2018-01-10P [address]ATTN: [place] [address]PV: 01/10/2018 Secondary NOT GIVENUNK [place] Insurance:SELF PAY [facility] Hospital Number: Effective Repository Date:2018-01-10 01/10/2018 JIM Miranda [id number] Primary JIM GARDINERB: [place] Insurance:CARESOURCEP [id number] Memorial Hospital Number: Hospital [id number]: [phone] [id number] Repository [phone] (HP) Date:2017-10-30 [address]ATTN: [place] [address]IG: 01/10/2018 Secondary NOT GIVENUNK [place] Insurance:SELF PAY [facility] Hospital Number: Effective Repository Date:2017-12-11 10/23/2017 JIM SALAS793 Primary JIM GARDINERB: [place] BETNER Insurance:CARESOURCEP [id number] [place] [facility] Number: Hospital [address]Aix: [phone]) [id number] Repository [phone] () Date:2017-10-02P [address]ATTN: [place] [address]WP: 10/23/2017 Secondary NOT GIVENUNK [place] Insurance:SELF PAY [facility] Hospital Number: Effective Repository Date:2017-10-23 10/02/2017 JIM SALAS793 Primary JIM GARDINERB: [place] BETNER Insurance:CARESOURCEP [id number] Memorial [facility] Number: Hospital [id number]: [phone]) [id number] Repository [phone] () Date:2017-09-26P [address]ATTN: [place] [address]DC: 10/02/2017 Secondary NOT GIVENUNK [place] Insurance:SELF PAY [facility] Hospital Number: Effective Repository Date:2017-10-02 09/23/2017 JIM [id number] Primary JIM GARDINERB: [place] Insurance:CARESOURCEP [id number] [id number]: ([phone]) [id number] Repository [phone] () Date:2017-08-20[address]ATTN: [place] [address]IV: 09/23/2017 Secondary NOT GIVENUNK [place] Insurance:SELF PAY [facility] Number: Effective Repository Date:2017-08-20 09/23/2017 JIM [id number] Primary JIM GARDINERB: [place] Insurance[place]CARESOURCEP [id number] Number[place] Hospital [id number]: [phone] [id number] Repository [phone] (HP) Date:2017-08-20[address]ATTN: [place] [address]MC: 09/23/2017 Secondary NOT GIVENUNK [place] Insurance:SELF [facility]Y [facility] Number: Effective Repository Date:2017-09-23 09/16/2017 JIM [id number] Primary JIM GARDINERB: [place] Insurance:CARESOURCEP [id number] Number: Hospital [id number]: [phone] [id number] Repository [phone] () Date:2017-09-06[address]ATTN: [place] [address]IL: 09/16/2017 Secondary NOT GIVENUNK [place] Insurance:SELF PAY [facility] Number: Effective Repository Date:2017-09-16 09/13/2017 JIM [id number] Primary NOT GIVENUNK [place] Insurance:SELF PAY [facility] [id number]: ([phone]) Number: Effective Repository [phone] () Date:2017-08-15 09/07/2017 Primary [facility]ERB[facility]:CareSourceP [id number] Zuri Number: [facility] [id number] Repository Date:Plan [id number]: (419) Name:[facility] [phone] () [address] [place] [address]AW: 09/06/2017 JIM [id number] Primary JIM GARDINERB: [place] Insurance:CARESOURCEP [id number] [facility] Number[facility] Hospital [id number]: [phone] [id number] Repository [phone] (HP) Date:2017-09-05[address] [address]PB: 09/06/2017 Secondary NOT GIVENUNK [place] Insurance:SELF PAY [facility] Number: Effective Repository Date:2017-09-05 08/16/2017 JIM [id number] Primary JIM GARDINERB: [place] Insurance:CARESOURCEP [id number] [place] Number: Hospital [address]Lif: [phone] [id number] Repository [phone] (HP) Date:2017-08-15[address]ATTN: [place] [address]DQ: 08/16/2017 Secondary NOT GIVENUNK [place] Insurance:SELF PAY [facility] Number: Effective Repository Date:2017-08-15 08/13/2017 JIM [id number] Primary JIM SALASB: [place] Insurance:CARESOURCEP [id number] [facility] Number: Hospital [id number]: [phone] [id number] Repository [phone] (HP) Date:2017-08-13[address]ATTN: [place] [address]IT: 08/13/2017 Secondary NOT GIVENUNK [place] Insurance:SELF PAY [facility] Number: Effective Repository Date:2017-08-13 08/08/2017 JIM [id number] Primary JIM SALASB: [place] Insurance:CARESOURCEP [id number] [facility] Number: Hospital [id number]: [phone] [id number] Repository [phone] (HP) Date:2017-07-10[address]ATTN: [place] [address]ZO: 08/08/2017 Secondary NOT GIVENUNK [place] Insurance:SELF PAY [facility] Number: Effective Repository Date:2017-07-10 08/08/2017 JIM [id number] Primary JIM ABRAHAM: [place]STAL Insurance:CARESOURCEP [id number] [facility] Number: [facility] [id number]: ([phone]) [id number] Repository [phone] () Date:2017-07-[address]ATTN: [place] [address]HO: 08/08/2017 Secondary NOT GIVENUNK [place] Insurance:SELF PAY [facility] Number: Effective Repository Date:2017-08-08
== END ==
PROVIDERS: Family Provider Family Medicine; PCP Family Medicine; Referring Provider Nurse Practitioner Women's Health; Visit Provider Nurse Practitioner Women's Health
DX: Z11.3 Encounter for screening for infections with a predominantly sexual mode of transmission (principal); Z20.2 Contact with and (suspected) exposure to infections with a predominantly sexual mode of transmission
CPT/HCPCS: 36415; 86695; 86696; 87491; 87591

== ENCOUNTER 2018-09-12 22:30 | Emergency (ER) | payer MEDICAID, SELFPAY ==
[2018-06-03 11:07] VITALS: BMI 37.0
[2018-09-12 22:31] VITALS: BP 133/80; PULSE 98; RESP 18; TEMP 37.3; O2SAT 98; BMI 35.9
--- NOTE | 2018-09-12 23:46 | ED.RN ---
lab called with critical lab results. positive strep A. Dr. ahumada made aware.
--- NOTE | 2018-09-12 23:49 | ED.DCSUM_ITS ---
- ER Visit Summary Date of Service: 09/12/18 Chief Complaint: [Sore throat] History of Present Illness: The patient is a 38 F presents the emergency department complaint of a sore throat that started this morning. Patient denies any cough. She has had a fever up to 100.0. Patient has kids in daycare but they themselves did not had strep throat. Patient gets strep frequently about once a year. She has no medical history otherwise.] Physical Examination: [HEENT-PERRLA, EOMI. Cranial nerves II through XII grossly intact. TMs clear. Mucous membranes moist. . Patient has diffuse pharyngeal erythema. Patient tonsils are absent due to tonsillectomy. Uvula is in the midline without trismus. Patient does have anterior lymphadenopathy noted that slightly tender. Cardiovascular-regular rate and rhythm without murmur or ectopy Lungs-clear to auscultation, chest wall stable without crepitus or subcu emphysema Abdomen-normoactive bowel sounds, soft, nontender, no rebound or rigidity, no peritoneal signs. Extremities-intact ?4, normal range of motion, normal pulses, atraumatic] Test Results: [Rapid strep screen was positive] Emergency Department Course and Treatment: [Patient was given Bicillin 1.2 m illiunits IM as well as Toradol 60 mg IM.] Treatment Plan: [Patient to follow-up with primary care physician within next 5- 7 days. Patient advised to return if difficulty swelling on secretions or condition should worsen anyway.] Patient given a prescription for naproxen Disposition: [Discharged home in stable condition.] Impression: [Strep pharyngitis] This note was generated with [employer] dictation software. It may contain incorrect words, spelling, and punctuation that were not noted in review of the chart prior to signing ED Disposition - Plan for ED Patient: Referrals: Ruth Ramirez [Primary Care Provider] -
--- NOTE | 2018-09-12 23:49 | ED.DEP ---
ED Disposition - Plan for ED Patient: Instructions: ED Strep Pharyngitis Conf Prescriptions: Naproxen [Naprosyn] 500 mg PO BID PRN #20 tab Referrals: Ruth Ramirez [Primary Care Provider] - 5-7 Days
[2018-09-13] MEDS: Ketorolac 60 MG/2 ML Vial IM (00:04)
[2018-09-13] MEDS: Penicillin G Benzathine 1.2 MU/2 ML Syringe IM (00:07)
[2018-09-13 00:26] VITALS: PULSE 76; RESP 16; O2SAT 98
== END 2018-09-13 00:27 | disposition home or self-care (01) ==
LOC: ED 23:11
PROVIDERS: Emergency Provider Emergency Medicine; Family Provider Family Medicine; PCP Family Medicine
DX: J02.0 Streptococcal pharyngitis (principal); Z72.0 Tobacco use
CPT/HCPCS: 87880; 96372; 99282

== ENCOUNTER 2019-02-18 09:14 | Emergency (ER) | payer MEDICAID, SELFPAY ==
[2019-02-18 08:38] VITALS: BMI 37.5
[2019-02-18 09:15] VITALS: BP 134/77; PULSE 77; RESP 18; TEMP 36.1; O2SAT 97; BMI 37.4
--- NOTE | 2019-02-18 09:16 | CT_ITS ---
STUDY: CT ABDOMEN AND PELVIS WITHOUT CONTRAST REASON FOR EXAM: Female, 38 years old. Flank pain. RADIATION DOSAGE (If Supplied By Facility): CTDIvol = ( 15.53 ) mGy, DLP = ( 756.77 ) mGycm TECHNIQUE: Transaxial images were obtained from the dome of the diaphragm to the symphysis pubis without oral contrast, and without intravenous contrast. Sagittal and coronal images were reconstructed. Individualized dose optimization techniques were used for this CT. COMPARISON: None. FINDINGS: The visualized lung bases are unremarkable. The visualized portions of the heart are within normal limits. Normal liver. The gallbladder is contracted. Questionable small gallbladder polyp. Normal spleen. Normal pancreas. Normal bilateral adrenal glands. Normal right kidney. Normal left kidney. There is a small hiatal hernia. Normal small intestine. Normal colon. The appendix is visualized and appears normal. Normal abdominal aorta. Normal inferior vena cava. Normal retroperitoneum. Normal urinary bladder. Phleboliths are seen within the pelvis. Small benign-appearing bilateral inguinal lymph nodes. There is a small umbilical hernia containing fat. Normal osseous structures. CT/Abdomen/Pelvis without Cont IMPRESSION: No acute abnormality is seen. Electronically Signed: Washington Vazquez, at 10:31 EDT , Service support ,
--- NOTE | 2019-02-18 09:24 | ED.VIS.GEN ---
History of Present Illness Chief Complaint: Flank Pain Narrative: 38-year-old female presents with flank pain. Started fairly suddenly. It is intermittent and colicky in nature. It radiates anteriorly. It is currently moderate in severity. She was sent from her [employer] physician's office for a CT scan to rule out stone. Past Medical History - Allergies and Home Meds Allergies/Adverse Reactions: Allergies metoclopramide HCl [From Reglan] Adverse Reaction (Verified 02/18/19 09:16) Other restlessness Primary Care Physician: Ruth Ramirez [Primary Care Provider] - Surgical History: - - d and c x 2, laparoscopy Smoking Status: Former smoker Review of Systems General: Denies: Chills, Fever, Sweats Eyes: Denies: Visual changes - bilaterally, Diplopia ENT: Denies: Rhinorrhea, Sore throat Cardiovascular: Denies: Chest pain, Palpitations Respiratory: Denies: Dyspnea, Cough, Dyspnea on exertion Gastrointestinal: Denies: Abdominal pain, Nausea, Vomiting, Diarrhea, Melena, Hematochezia Genitourinary: Denies: Dysuria, Hematuria, Frequency Musculoskeletal: Reports: Back pain. Denies: Extremity Pain Skin: Denies: Rash, Wounds Neurological: Denies: Headache, Weakness, Numbness Physical Exam Vital Signs/Narrative: Vital Signs Temp Pulse Resp BP Pulse Ox 02/18/19 09:15 97 F L 77 18 134/77 H 97 General: Well nourished, Well developed, No Acute Distress Head: Normocephalic, Atraumatic Eyes: Perrl, EOMI ENT: Moist mucous membranes, No rhinorrhea Neck: Supple, Nontender Cardiovascular: Regular rate, Regular rhythm, No murmurs Respiratory: No distress, CTA bilaterally, Chest nontender Abdomen: Soft, Nontender, Nondistended, Normal bowel sounds Back: Nontender, Normal Inspection Extremities: Nontender, No edema Skin: Normal color, No rash Neurological: Alert, Oriented x3, Cranial nerves II-XII grossly intact, Normal Strength, Normal Sensation Psychological: Normal affect, Normal Mood Diagnostic/Tx/Re-eval - Medical Decision Making Urinalysis is unremarkable. CT abdomen/pelvis unremarkable. Exact cause of pain unclear. She has an appointment with a urologist tomorrow. It is possible that this is musculoskeletal as well. I discussed this with her. She has no pelvic pain to suggest ovarian torsion. She looks well. I feel she can safely be discharged home. ED Disposition - Plan for ED Patient: Disposition: Home or Assisted Living Diagnosis: Flank pain Instructions: FLANK PAIN, Uncertain Cause Referrals: Ruth Ramirez [Primary Care Provider] -
[2019-02-18 09:38] LABS: Bacteria 0 SEEN /hpf (None Seen); Mucous, Urine 0 SEEN /hpf (<or=2+)
[2019-02-18 09:52] LABS: Internal QC Validated? YES +Cl - CLEAR BKGD; Pregnancy, Urine Negative Negative
[2019-02-18 09:58] LABS: Color, Urine Yellow (Yellow); Glucose, Dipstick Normal (Normal); Ketone-Dipstick Negative (Negative); Leukocyte Esterase-Dipstick 25 /ul (Negative); Nitrite-Dipstick Negative (Negative); Occult Blood-Urine 10 /ul (Negative); Protein-Dipstick Negative (Negative); Specific Gravity, Urine 1.015 (1.002-1.030); Urine Bilirubin Dipstick Negative (Negative); Urine Clarity Sl. Cloudy (Clear); Urine Urobilinogen Normal (Normal); Urine pH 6.5 (5.0 - 8.0)
[2019-02-18 10:17] LABS: Red Blood Cells-Urine 0-5 SEEN /hpf (0-5); Squamous Epithelial Cells - UA 5-10 SEEN /hpf (5-10); White Blood Cells 0-5 SEEN /hpf (0-5)
[2019-02-18 11:24] VITALS: BP 125/78; PULSE 69; RESP 15; O2SAT 98
== END 2019-02-18 11:26 | disposition home or self-care (01) ==
PROVIDERS: Emergency Provider Emergency Medicine; Family Provider Family Medicine; PCP Family Medicine
DX: R10.9 Unspecified abdominal pain (principal); Z87.891 Personal history of nicotine dependence; Z88.8 Allergy status to other drugs, medicaments and biological substances
CPT/HCPCS: 74176; 81001; 81025; 87086; 87088; 99282; A4216